=== PATIENT | female | born 1980 ===

== ENCOUNTER 2016-11-18 12:17 | Emergency (ER) | payer OTHER ==
[2016-11-18] MEDS ORDERED: Lactated Ringer's 1,000 ML IV SCH (12:45)
[2016-11-18 13:19] LABS: BASO % 0.4 % (0.0-2.0); EOS # 0.1 K/uL (0.0-0.7); EOS % 0.7 % (0.0-4.0); HEMOGLOBIN 11.9 g/dL (11.0-16.0); LYMPH # 2.7 K/uL (1.0-4.3); LYMPH % 20.9 % (20.0-40.0); MEAN CORPUSCULAR HEMOGLOBIN 26.1 pg (27.0-31.0); MEAN CORPUSCULAR HGB CONC 32.3 g/dL (33.0-37.0); MEAN PLATELET VOLUME 8.6 fL (7.2-11.7); MONO # 0.8 K/uL (0.0-0.8); MONO % 6.1 % (0.0-10.0); NEUT # 9.1 K/uL (1.8-7.0); NEUT % 71.9 % (50.0-75.0); NRBC % 0.1 % (0.0-2.0); RBC 4.57 Mil/uL (3.80-5.20); RED CELL DISTRIBUTION WIDTH 16.1 % (11.5-14.5); WHITE BLOOD COUNT 12.7 K/uL (4.8-10.8)
[2016-11-18 13:22] LABS: MEAN CELL VOLUME 80.9 fL (81.0-99.0)
[2016-11-18 13:32] LABS: SQUAMOUS EPITHIAL 3 /hpf (0-5); URINE BACTERIA MOD (<OCC); URINE BILIRUBIN NEGATIVE (NEGATIVE); URINE BLOOD NEGATIVE (NEGATIVE); URINE CLARITY Clear (Clear); URINE COLOR Straw (YELLOW); URINE GLUCOSE (UA) NORMAL (Normal); URINE LEUKOCYTE ESTERASE NEG Leu/uL (Negative); URINE NITRATE NEGATIVE (NEGATIVE); URINE PROTEIN NEGATIVE (NEGATIVE); URINE UROBILINOGEN NORMAL mg/dL (0.2-1.0)
[2016-11-18 13:35] LABS: INR 0.9; PROTHROMBIN TIME 10.3 SECONDS (9.7-12.2)
[2016-11-18 13:56] LABS: ALBUMIN 3.3 g/dL (3.5-5.0)
[2016-11-18 13:58] LABS: GFR AFRICAN-AMERICAN > 60; GFR NON-AFRICAN AMERICAN > 60
[2016-11-18 13:59] LABS: ALT/SGPT 23 U/L (9-52); AST/SGOT 17 U/L (14-36); BLOOD UREA NITROGEN 5 mg/dL (7-17); CALCIUM 9.6 mg/dl (8.6-10.4); URIC ACID 2.6 mg/dL (2.2-7.5)
[2016-11-18 14:00] LABS: ALB/GLOB RATIO 0.9 (1.0-2.1)
--- NOTE | 2016-11-18 14:28 | US ---
PROCEDURE: OB Pelvic Ultrasound HISTORY: elevated BP COMPARISON: None available. FINDINGS: UTERUS: Gestational sac: There is a single live intrauterine fetus in cephalic presentation. Heart rate: 161 bpm. BPD: 8.83 cm corresponding to 35 weeks and 5 days of gestational age. HC: 31.3 cm corresponding to 35 weeks and 1 day of gestational age. AC: 31.6 cm corresponding to 35 weeks and 4 days of gestational age. FL: 7.00 cm corresponding to 35 weeks and 6 days of gestational age. age (Ultrasound estimated): 35 weeks and 4 days Yana-gestational hemorrhage: None. Date of delivery (Ultrasound estimated) : 12/19/2016 Placenta is posterior. The amniotic fluid index is normal and measures 13.98 cm. Estimated weight is 2728 grams (28.8 percentile). The biophysical profile as documented by the technologist is as follows: breathin body movement: 2 Tone: 2 Amniotic Fluid: 2 Total score: 8 CERVIX: Long and closed. No cervical abnormality seen. The cervical length is 3.96 cm. FREE FLUID: None. OTHER FINDINGS: None. IMPRESSION: 1. Single live intrauterine fetus in cephalic presentation with mean gestational age of 35 weeks and 4 days. The estimated date of delivery by ultrasound is 12/19/2016. The ultrasound dates correspond with the clinical dates. 2. Biophysical profile score is 8. 3. Placenta is posterior, cervix is closed and amniotic fluid index is normal.
--- NOTE | 2016-11-18 14:38 | OBHP ---
Datetime: 11/18/2016 12:54 IP Adm Impression: , intrauterine IP Chief Complaint Other: elevated BP in office IP Admit Plan: Discharge home Admit Comment, IP Provider: chief complaint-elevated bp in office HPI 36 y/o at 36.4 wga here for evalaution of BP.Patient states that she was in clinic and wa s noted to have elevated BP.Patient denies nausea, vomiting, headache, chest pain, shortness of breat h, numbness or tingling in hands and feet course AMA; care with dr gustafson PMH denies PSH denies OBGYN HX Social hx denies tobacco,alcohol or illicit drug use Exam see exam section A/P 36 y/o at 36 weeks and 4 days with elevated BP in clinic.FHT nonreactive -PIH labs -iv fluid bolus -monitor closely 2.35 pm Patient denies any complaints FHT reactive after iv fluids BPP 8/8 PIH labs normal; UA with no protein.BP normal except for 1 elevated BP initially Patient discharged home follow up in2 days for nst and BP check discussed with dr gustafson Pelvic Type - PN: Adequate Extremities - PN: Normal Abdomen - PN: Normal Back - PN: Normal Lungs - PN: Normal Heart - PN: Normal General - PN: Normal Gestation - Est Wks by US: 36.4 IP Hx Assessment: The History has been Reviewed and is Current EGA AdmitDate IP: 36.4 Vital Signs Provider: Reviewed IP Chief Complaint: Other Genitourinary Exam: Normal DTRs - PN: Normal
== END 2016-11-18 14:37 | disposition home or self-care (01) ==
LOC: C.EROB 12:17
DX: O26.893 Other specified pregnancy related conditions, third trimester (principal); R03.0 Elevated blood-pressure reading, without diagnosis of hypertension; Z3A.36 36 weeks gestation of pregnancy
CPT/HCPCS: 76815; 76818; 80053; 81001; 83615; 84550; 85025; 85384; 85610; 85730; 86592; 86703; 86850; 86900; 99283; J7120

== ENCOUNTER 2016-11-22 19:05 | Inpatient (IN) | payer OTHER ==
[2016-11-22 19:13] VITALS: BMI 29.9
[2016-11-22] MEDS ORDERED: Lactated Ringer's 1,000 ML IV ONE (20:27)
[2016-11-22] MEDS ORDERED: Lactated Ringer's 1,000 ML IV SCH (20:30)
--- NOTE | 2016-11-22 21:17 | OBHP ---
Datetime: 11/22/2016 21:10 IP Adm Impression: Term, intrauterine IP Admit Plan: Admit to unit Admit Comment, IP Provider: 36 y/o at 37.1 wga with increasing blood pressure over past few wee ks up to 160/94. Pt was seen in office Thursday with elevated BP and advised to go to ER in which pre elcmpatic labs and prolonged montirong of BPS and nst was performed. Pt was subsequenlty discharged w ith close follow up. Pt also had recent 24 hour urine total protein with over 2000mg of protein. Pt currently denies headache, blurry vision, RUQ/epgiastric pain. course AMA; care with dr gustafson had hep b surface antigen abnormal repeat wnl (believe lab error) PMH denies PSH denies OBGYN HX Social hx denies tobacco,alcohol or illicit drug use Exam see exam section A/P 36 y/o at 37 weeks and 1 days with mild preeclampsia -admit to L+D -npo -PIH labs -iv fluid -cont toco and efm -analgesia prn -cervidil Pelvic Type - PN: Adequate Extremities - PN: Normal Abdomen - PN: Normal Back - PN: Normal Breast - PN: Not Done Lungs - PN: Normal Heart - PN: Normal Thyroid - PN: Normal Neurologic - PN: Normal HEENT - PN: Normal General - PN: Normal Weight - Estimated: 3200 Presentation-Admit: Vertex FHR - Baseline A Provider: 140 Contraction Comments Provider: irregular Gestation - Est Wks by US: 37.1 IP Hx Assessment: The History has been Reviewed and is Current EGA AdmitDate IP: 37.1 Vital Signs Provider: Reviewed; Within Normal Limits IP Chief Complaint: Other NICHD Variability Prov Fetus A: Moderate 6-25bpm NICHD Accel Fetus A IP Provider: 15X15 FHR Category Provider Fetus A: Category I NICHD Decel Fetus A IP Provider: None Dilatation, Provider: 0 Effacement, Provider: 0 Station, Provider: -3 Genitourinary Exam: Normal DTRs - PN: Normal
--- NOTE | 2016-11-22 21:20 | OBADHP ---
Datetime: 11/22/2016 21:10 Admit Comment, IP Provider: 36 y/o at 37.1 wga with increasing blood pressure over past few wee ks up to 160/94. Pt was seen in office Thursday with elevated BP and advised to go to ER in which pre elcmpatic labs and prolonged montirong of BPS and nst was performed. Pt was subsequenlty discharged w ith close follow up. Pt also had recent 24 hour urine total protein with over 2000mg of protein. Pt currently reports headache and denies blurry vision, RUQ/epgiastric pain. Pt reports pressure, lower back pain, constant, dneies ctx, vb, lof and reports movements. course AMA; care with dr gustafson had hep b surface antigen abnormal repeat wnl (believe lab error) PMH denies PSH denies OBGYN HX Social hx denies tobacco,alcohol or illicit drug use Exam see exam section A/P 36 y/o at 37 weeks and 1 days with preeclampsia -admit to L+D -vs q 15 min -npo -PIH labs -iv fluid -cont toco and efm -analgesia prn -cervidil Pelvic Type - PN: Adequate Extremities - PN: Normal Abdomen - PN: Normal Back - PN: Normal Breast - PN: Not Done Lungs - PN: Normal Heart - PN: Normal Thyroid - PN: Normal Neurologic - PN: Normal HEENT - PN: Normal General - PN: Normal Weight - Estimated: 3200 Presentation-Admit: Vertex FHR - Baseline A Provider: 140 Contraction Comments Provider: irregular Gestation - Est Wks by US: 37.1 IP Hx Assessment: The History has been Reviewed and is Current Vital Signs Provider: Reviewed; Within Normal Limits IP Chief Complaint: Other NICHD Variability Prov Fetus A: Moderate 6-25bpm NICHD Accel Fetus A IP Provider: 15X15 FHR Category Provider Fetus A: Category I NICHD Decel Fetus A IP Provider: None Dilatation, Provider: 0 Effacement, Provider: 0 Station, Provider: -3 Genitourinary Exam: Normal DTRs - PN: Normal EGA AdmitDate IP: 37.1 IP Adm Impression: Term, intrauterine IP Admit Plan: Admit to unit Datetime: 11/18/2016 12:54 IP Chief Complaint Other: elevated BP in office
[2016-11-22 21:27] LABS: BASO % 0.1 % (0.0-2.0); EOS # 0.1 K/uL (0.0-0.7); EOS % 0.8 % (0.0-4.0); HEMATOCRIT 36.3 % (34.0-47.0); LYMPH # 2.7 K/uL (1.0-4.3); LYMPH % 22.7 % (20.0-40.0); MEAN CELL VOLUME 80.3 fL (81.0-99.0); MEAN CORPUSCULAR HEMOGLOBIN 26.4 pg (27.0-31.0); MEAN CORPUSCULAR HGB CONC 32.9 g/dL (33.0-37.0); MEAN PLATELET VOLUME 8.3 fL (7.2-11.7); MONO # 0.9 K/uL (0.0-0.8); MONO % 7.4 % (0.0-10.0); RED CELL DISTRIBUTION WIDTH 15.8 % (11.5-14.5); WHITE BLOOD COUNT 11.8 K/uL (4.8-10.8)
[2016-11-22 21:31] LABS: RBC URINE < 1 /hpf (0-3); URINE BACTERIA OCC (<OCC); URINE BILIRUBIN NEGATIVE (NEGATIVE); URINE BLOOD NEGATIVE (NEGATIVE); URINE COLOR Straw (YELLOW); URINE GLUCOSE (UA) NORMAL (Normal); URINE KETONE NEGATIVE (NEGATIVE); URINE LEUKOCYTE ESTERASE NEG Leu/uL (Negative); URINE PROTEIN NEGATIVE (NEGATIVE); URINE UROBILINOGEN NORMAL mg/dL (0.2-1.0)
[2016-11-22 21:37] LABS: CHLORIDE 102 mmol/L (98-107); POTASSIUM 3.8 mmol/L (3.6-5.2); SODIUM 134 mmol/L (132-148)
[2016-11-22 21:39] LABS: AST/SGOT 16 U/L (14-36); BILIRUBIN,TOTAL 0.4 mg/dL (0.2-1.3); CARBON DIOXIDE 21 mmol/L (22-30); GFR AFRICAN-AMERICAN > 60; TOTAL PROTEIN 6.7 g/dL (6.3-8.3)
[2016-11-22 21:40] LABS: ALKALINE PHOSPHATASE 125 U/L (38-126); ALT/SGPT 21 U/L (9-52); BLOOD UREA NITROGEN 5 mg/dL (7-17); GLUCOSE,RANDOM 79 mg/dL (65-105); URIC ACID 3.1 mg/dL (2.2-7.5)
[2016-11-22] MEDS ORDERED: Nalbuphine 20 mg/ml Inj (1 ml) IVP PRN (23:30)
[2016-11-23 09:58] LABS: HEP B SURFACE AG CONF NEGATIVE
--- NOTE | 2016-11-23 11:28 | OBPN ---
Datetime: 11/23/2016 11:24 IP Progress Impression: Normal progression of labor IP Informed Consent Obtain: Induction of Labor IP Progress Plan: Continue present management Membranes, Provider: Intact Contraction Comments Provider: 3-6 min FHR - Baseline A Provider: 150 Presentation-Admit: Vertex IP Progress Note Comment: pt seen and examiend and reports cramping pain, tolerable. pt reports inte rmittent headache with blurry spots, denies any lof, vb, +FM. VSS VE see above a/p @ 37.2 wks GA IOL for preeclampsia -s/p cervidil -for cytotec -cont toco and efm -npo, ivf -cont current manamgnet Vital Signs Provider: Reviewed; Within Normal Limits NICHD Accel Fetus A IP Provider: 15X15 FHR Category Provider Fetus A: Category I NICHD Variability Prov Fetus A: Moderate 6-25bpm Dilatation, Provider: 0 Effacement, Provider: 0 Station, Provider: -3 NICHD Decel Fetus A IP Provider: None Datetime: 11/22/2016 21:10 Gestation - Est Wks by US: 37.1 Weight - Estimated: 3200
--- NOTE | 2016-11-23 14:18 | OBPN ---
Datetime: 11/23/2016 14:12 IP Informed Consent Obtain: Induction of Labor IP Progress Plan: Continue present management Membranes, Provider: Intact Contraction Comments Provider: q 5 min FHR - Baseline A Provider: 145 Gestation - Est Wks by US: 37.2 Presentation-Admit: Vertex IP Progress Note Comment: pt seen and examined denies any pain. pt denies heache, blurry vision, ruq /epigatric pain. VSS VE: se above a/p @ 37.2 wks GA IOL for mild preeclampsia -s/p cervidil x 1 -s/p cytotec -for second cervidil -cont toco and efm -pain management Vital Signs Provider: Reviewed; Within Normal Limits NICHD Accel Fetus A IP Provider: 15X15 NICHD Variability Prov Fetus A: Moderate 6-25bpm Dilatation, Provider: 0 Effacement, Provider: 0 Station, Provider: -3 NICHD Decel Fetus A IP Provider: None
[2016-11-24] MEDS ORDERED: Oxytocin 30 UNIT 30 UNITS/500 ML BAG IV SCH (03:00)
--- NOTE | 2016-11-24 04:50 | OBPN ---
Datetime: 11/24/2016 04:44 IP Progress Plan: Continue present management Membranes, Provider: Intact Contraction Comments Provider: irregular FHR - Baseline A Provider: 130 Gestation - Est Wks by US: 37.3 Presentation-Admit: Vertex IP Progress Note Comment: pt seen and examined and reports pain wiht contractions tolerable. denies lof, vb, +FM VSS VE see above MEDS s/p cervidl x 2 s/p cytotec x 1 A/P @ 37.3 wks GA IOL for mild preeclampsia, oligohydramnios -s/p cervidil x 2 -s/p cytotecx1 -for cytotec -cont toco and efm -pain managment FHR Category Provider Fetus A: Category I NICHD Variability Prov Fetus A: Moderate 6-25bpm Dilatation, Provider: 0 Effacement, Provider: 0 Station, Provider: -3 NICHD Decel Fetus A IP Provider: None
[2016-11-24] MEDS ORDERED: Sodium Citrate/Citric Acid 15 ml Sol PO ONE (07:34)
--- NOTE | 2016-11-24 07:49 | OBPN ---
Datetime: 11/24/2016 07:35 IP Progress Impression: Arrest of dilatation/descent Membranes, Provider: Intact Contraction Comments Provider: q 5 min FHR - Baseline A Provider: 135 IP Progress Note Comment: pt seen and examiend for progression of labor, IOL for mild preeclampsia, oligohydramnios reprots ctx pain, declined pain medicatin, deines lof, vb, +FM pt denies headache, blurry vision, ruq/epigastric pain VSS EMF: Cat I TOCO: q 5 min A/P @ 37.3 wks GA with failed IOL for mild preeclampsia and oligohydramnios -s/p cervidli x 2 -s/p cytotec x 2 -r/b/a/i of contining induction vs PLTCS discussed with patient not limited to bleeding to bleedin g , infection. pt and both agree to prceed to PLTCS , consnet signed. All questions answered Vital Signs Provider: Reviewed; Within Normal Limits NICHD Accel Fetus A IP Provider: 15X15 FHR Category Provider Fetus A: Category I NICHD Variability Prov Fetus A: Moderate 6-25bpm Dilatation, Provider: 0 Effacement, Provider: 10 Station, Provider: -3 NICHD Decel Fetus A IP Provider: None
[2016-11-24] MEDS ORDERED: cefOXitin IV 2 gm in Dextrose 2 GM/50 ML BAG IVPB ONE ×2 (07:50→08:03)
[2016-11-24] MEDS ORDERED: Sodium Citrate/Citric Acid 15 ml Sol ONE (07:50)
[2016-11-24] MEDS ORDERED: ceFAZolin IV 2 gm in Dextrose 2 GM/100 ML BAG IVPB ONE (08:00)
[2016-11-24] MEDS ORDERED: Morphine 1 mg/ml preservative-free Inj(Duramorph) ONE (08:04)
[2016-11-24] MEDS ORDERED: Oxycodone/Acetaminophen 5/325 mg Tab PO PRN ×2 (08:07)
--- NOTE | 2016-11-24 09:30 | OBDS ---
DELIVERY PERSONNEL Delivery Doctor: Jinny Guerra MD Scrub Nurse: Kip Mercer Script Editor: Marlen Vargas RN Anesthesiologist: Dr Estrada MATERNAL INFORMATION Delivery Anesthesia: Spinal Medications in Delivery: pitocin Placenta Cultured: Yes Provider Comments: live female apgars 9,9 weight of 6lbs 11 ounces. pediatricia present for melissa harding normal uterus tubes and ovaries bilaterlally ebl 800ml no complications LABOR SUMMARY EDC: 12/12/2016 00:00 No. Babies in Womb: 1 Labor Anesthesia: None LABOR INFORMATION Reason for Induction: Oligohydramnios; Other Cervical Ripening Agents: Cervidil; Cytotec @ Oxytocin: N/A Group B Beta Strep: Done, Result Unknown Antibiotics # of Doses: 1 Antibiotics Time of Last Dose: 0800 Steroids Given: None Reason Steroids Not Administered: Not Applicable MEMBRANES Membranes Rupture Method: Artificial Rupture of Membranes: 11/24/2016 08:44 Length of Rupture (hrs): 0.00 Amniotic Fluid Amount: Moderate Amniotic Fluid Odor: None STAGES OF LABOR Stage 3 hrs: -93735 Stage 3 min: -59 CSECTION DELIVERY Primary Indication: Failed Induction Other Primary Indication: OLigohydramnios Secondary Indication: Mild PreEclampsia CSection Urgency: N/A CSection Incidence: Primary CSection Incision: Lower Uterine Transverse BABY A INFORMATION Delivery Date/Time: 11/24/2016 08:44 Method of Delivery: Born in Route : No : N/A Forceps: N/A Vacuum Extraction: N/A Shoulder Dystocia : No SHOULDER DYSTOCIA BABY A Delivery Date/Time: 11/24/2016 08:44 PRESENTATION/POSITION BABY A Presentation: Cephalic Cephalic Presentation: Vertex Vertex Position: Left Occipital Posterior PLACENTA INFORMATION BABY A Placenta Delivery Time : 11/24/2005 08:45 Placenta Method of Delivery: Manual Removal Placenta Status: Delivered SCORES BABY A Heart Rate 1 min: >100 bpm Resp Effort 1 min: Good Cry Reflex Irritability 1 min: Cough or Sneeze or Pulls Away Muscle Tone 1 min: Active Motion Color 1 min: Body Lykens, Extremities Blue SCORE 1 MIN: 9 Heart Rate 5 min: >100 bpm Resp Effort 5 min: Good Cry Reflex Irritability 5 min: Cough or Sneeze or Pulls Away Muscle Tone 5 min: Active Motion Color 5 min: Body Lykens, Extremities Blue SCORE 5 MIN: 9 INFANT INFORMATION BABY A Gestational Age at Delivery: 37.3 Infant Outcome : Liveborn Condition : Stable Infant Sex: Female IDENTIFICATION/MEDS BABY A ID Band Number: [id number] ID Band Location: Left Leg; Left Arm Sensor Applied: Yes Sensor Number: [id number] Sensor Location : Cord Clamp WEIGHT/LENGTH BABY A Birthweight (gms): 3030 Weight (lb): 6 Infant Weight (oz): 11 Infant Length Inches: 18.50 Length cms: 47.0 CORD INFORMATION BABY A No. Cord Vessels: 3 Nuchal Cord : N/A Suction: None; Mouth ASSESSMENT BABY A Infant Complications Other: none
--- NOTE | 2016-11-24 09:32 | PCM.SURG1 ---
Surgeon's Initial Post Op Note - Surgeon's Notes Surgeon: Dee Guerra MD Processing Specialist: Husam Cox MD Type of Anesthesia: Spinal Anesthesia Administered By: Dr Musa Pre-Operative Diagnosis: Term intrauterine , failed inudctin of labor for mild preeclampsai and oligohydramnios Operative Findings: live female , JADE position, agpars 9,9 weight of 6lbs 11 ounces, ebl 800 ml, normal uterus tubes and ovaries bilaterally. fire extinguisher installer presnt for delivery. Dr Husam Cox was surgical assistance adn present for enire case and essential in ganing entry, retraction, exposure, holding bladder blade, delivery baby, closing all layers. Post-Operative Diagnosis: same as above Operation Performed: Primary Low transverse Cesearean section Specimen/Specimens Removed: placenta Estimated Blood Loss: EBL {In ML}: 800 Blood Products Given: N/A Drains Used: No Drains Date of Surgery/Procedure: 11/24/16 Time of Surgery/Procedure: 08:30
[2016-11-24] MEDS: Simethicone 80 mg Chewtab PO SCH ×3 (13:15→22:12)
[2016-11-24] MEDS: Prenatal Multivit/Folic Acid/Iron Tab PO SCH (15:05)
[2016-11-24] MEDS: cefOXitin IV 2 gm in Dextrose 2 GM/50 ML BAG IVPB SCH ×2 (16:11→23:43)
--- NOTE | 2016-11-25 00:47 | OP ---
PROCEDURE DATE: 11/24/2016 PREOPERATIVE DIAGNOSES: Term intrauterine , failed induction of labor, mild preeclampsia, and oligohydramnios. POSTOPERATIVE DIAGNOSES: Term intrauterine , failed induction of labor, mild preeclampsia, and oligohydramnios. OPERATION PERFORMED: Primary low transverse caesarean section. SURGEON: Dee Guerra MD REGULATORY AFFAIRS ANALYST: Husam Cox MD TYPE OF ANESTHESIA: Spinal. ANESTHESIA ADMINISTERED BY: *------*. OPERATIVE FINDINGS: Live female , JADE position, Agars 9 and 9, weight 6 pounds 11 ounces. Normal uterus, tubes, and ovaries bilaterally. Electronics Engineering Manager was present for delivery. Dr. Husam Cox was the surgical scrub technician present for the entire case and was essential for gaining entry, retraction and exposure, holding the bladder blade, delivering the baby, and closing all layers. ESTIMATED BLOOD LOSS: 800 mL. BLOOD PRODUCTS: None. COMPLICATIONS: None. SPECIMEN REMOVED: Placenta. DESCRIPTION OF PROCEDURE: The patient was taken to the operating room, where she was given spinal anesthesia. Once it was found to be adequate, she was placed on the operating table in the dorsal supine position. The patient was then prepped and draped in the usual sterile fashion and a time-out was done to confirm correct patient and correct procedure. A Pfannenstiel skin was made with a scalpel and carried down to the underlying fascia with the Bovie. The fascia was incised in the midline and incision was extended laterally with the Bovie. The inferior aspect of the fascial incision was grasped with Allis and Manuel clamps and underlying rectus muscle dissected off bluntly with the use of the Bovie. Attention was then turned to the superior aspect of the incision, which in a similar fashion was grasped with Allis and Manuel clamps and underlying rectus muscle dissected off bluntly with the use of the Bovie. The rectus muscle was then bluntly in the midline. The peritoneum identified in a clear space, entered bluntly, and *------* until there was good visualization of the bladder. The lower end of the Tanya was then inserted and the vesicouterine peritoneum was incised with the Metzenbaum scissors. The incision was extended laterally and bladder flap was created digitally. The lower end of the Tanya was then reinserted and lower uterine segment incised in a transverse fashion. The uterine incision was extended laterally bluntly with clear amniotic fluid noted in small amount. The surgeon's hand entered the uterine cavity. The 's head was delivered atraumatically, with no nuchal cord noted, followed by delivery of the shoulders and followed by delivery of body. Both oral and nasal passages of the baby were bulb suctioned. The umbilical cord was clamped and cut and the baby was handed off to the waiting back stayer. The cord blood and cord gases were collected and sent x2. The placenta was then delivered manually. The uterus was exteriorized and cleared off all clots and debris, and the uterine incision was then repaired in 0 Vicryl in a running continuous locked fashion. A second layer of the same suture was used to close the uterus in a running imbricating manner. There was good hemostasis at the uterine incision site. There was normal tubes and ovaries. The uterus was then returned into the abdomen and pericolic gutters were cleared off all clots and debris. There was good hemostasis. The peritoneum was reapproximated and closed with 2-0 chromic in a continuous fashion. The rectus was reapproximated with 2-0 chromic in an interrupted manner. The fascia was reapproximated and closed with 0 Vicryl in a running continuous fashion. Subcutaneous layer was closed with 2-0 plain in an interrupted manner and the skin was reapproximated and closed with 4-0 Monocryl in a running subcuticular fashion. At the end of the procedure, all needles, sponge, and instrument counts were noted as correct x2. The patient tolerated the procedure well and was transferred to the recovery room in stable condition. Dee Guerra MD
[2016-11-25] MEDS: cefOXitin IV 2 gm in Dextrose 2 GM/50 ML BAG IVPB SCH (08:10)
[2016-11-25 08:36] LABS: BASO % 0.1 % (0.0-2.0); EOS # 0.1 K/uL (0.0-0.7); EOS % 0.4 % (0.0-4.0); HEMATOCRIT 34.2 % (34.0-47.0); LYMPH # 2.2 K/uL (1.0-4.3); LYMPH % 13.6 % (20.0-40.0); MEAN CELL VOLUME 80.1 fL (81.0-99.0); MEAN CORPUSCULAR HEMOGLOBIN 26.6 pg (27.0-31.0); MEAN CORPUSCULAR HGB CONC 33.2 g/dL (33.0-37.0); MEAN PLATELET VOLUME 8.7 fL (7.2-11.7); MONO # 1.2 K/uL (0.0-0.8); MONO % 7.4 % (0.0-10.0); WHITE BLOOD COUNT 16.4 K/uL (4.8-10.8)
[2016-11-25] MEDS: Simethicone 80 mg Chewtab PO SCH ×4 (09:43→21:41)
[2016-11-25] MEDS: Prenatal Multivit/Folic Acid/Iron Tab PO SCH (09:56)
--- NOTE | 2016-11-25 13:21 | OBPPN ---
Datetime: 11/25/2016 07:06 PP Pain Prov: Within normal limits PP Nausea Prov: Denies PP Flatus Prov: No PP BM Prov: No PP Nausea Prov comment: Lochia is moderate PP Flatus Prov comment: OOB to chair PP Breasts Prov: Normal PP Heart Prov: Normal PP Lungs Prov: Normal PP Abdomen/Uterus Prov: Normal PP Lochia Prov: Normal PP Vulva/Perineum Prov: Normal PP CVA Tenderness Prov: Not Done PP Extremities Prov: Normal PP C/S Incision Prov: Normal PP Progress Prov: Normal PP Impression Prov: Normal progression PP Plan Prov: Continue present management PP Progress Note Prov: Patient seen and examined at bedside. Patient is doing well, out of bed to ch air. Pain is controlled. Patient is tolerating diet. Lochia is moderate. Padilla out this am. Denies pa ssing flatus or BM. Breast feeding. Denies headache, dizziness, visual changes, N/V, CP, SOB, urinary symptoms. VS: 116/66 91 99.0 I/O: 4000/3250 Gen: AAOx3 CV: RRR Lungs: CTA B/L Abd: Soft, appropriately tender, dressing c/d/i, fundus firm at umbilicus, abd binder in place Ext: No clubbing, cyanosis, edema; no calf tenderness, +pedal pulses, - homans Labs: 11.8>11.9/36.3<190 F/U am CBC Rh positive A/P: 36 yo at 37w3d s/p PLTCD 2/2 failed induction for pre-eclampsia and low SCOTT POD#1 1. Stable, afebrile 2. Pain control - percocet and motrin prn 3. F/U am CBC 4. Advance diet as tolerated 5. Padilla discontinued; f/u voiding trial 6. Encourage ambulation and hydration; encourage ISS use 7. Rubella non-immune - will need MMR prior to discharge 8. Continue abx 9. Continue routine care 10. Plan d/w attending Mercedes Lomax PGY-1 agree with above s/p CxS POD #1 doign well pain amnage santamaria albs bowel regimen regular diet encourage ambaution, bresta feeding IP PP Procedures: None Vital Signs Provider PP: Reviewed
[2016-11-26 07:51] LABS: BASO % 0.2 % (0.0-2.0); EOS # 0.1 K/uL (0.0-0.7); EOS % 1.1 % (0.0-4.0); HEMATOCRIT 30.7 % (34.0-47.0); LYMPH # 2.1 K/uL (1.0-4.3); LYMPH % 15.5 % (20.0-40.0); MEAN CELL VOLUME 80.8 fL (81.0-99.0); MEAN CORPUSCULAR HEMOGLOBIN 26.8 pg (27.0-31.0); MEAN CORPUSCULAR HGB CONC 33.2 g/dL (33.0-37.0); MEAN PLATELET VOLUME 8.2 fL (7.2-11.7); MONO % 7.3 % (0.0-10.0); RED CELL DISTRIBUTION WIDTH 15.7 % (11.5-14.5); WHITE BLOOD COUNT 13.5 K/uL (4.8-10.8)
[2016-11-26] MEDS: Simethicone 80 mg Chewtab PO SCH ×3 (11:14→21:49)
[2016-11-26] MEDS: Prenatal Multivit/Folic Acid/Iron Tab PO SCH (11:49)
[2016-11-26 16:16] VITALS: RESP 20; O2SAT 98
[2016-11-27 00:14] VITALS: BP 120/72; PULSE 79; TEMP 98
[2016-11-27] MEDS ORDERED: Bacitracin 500 Units/gm Oint Foilpak UD TOP ONE (07:13)
[2016-11-27] MEDS ORDERED: Measles, Mumps, and Rubella 0.5 ML VIAL SC ONE (07:13)
--- NOTE | 2016-11-27 07:27 | OBPPN ---
Datetime: 11/27/2016 07:25 PP Pain Prov: Within normal limits PP Nausea Prov: Denies PP Flatus Prov: Yes PP BM Prov: Yes PP Breasts Prov: Normal PP Heart Prov: Normal PP Lungs Prov: Normal PP Abdomen/Uterus Prov: Normal PP Lochia Prov: Normal PP Vulva/Perineum Prov: Normal PP CVA Tenderness Prov: Normal PP Extremities Prov: Normal PP C/S Incision Prov: Normal PP Progress Prov: Normal PP Impression Prov: Normal progression PP Plan Prov: Discharge IP PP Procedures: None Vital Signs Provider PP: Reviewed; Within Normal Limits Datetime: 11/26/2016 06:52 PP Comments Phys Exam Prov: fudus below umblicus ext no edema,no calf ten incision clean and dry PP Progress Note Prov: Patient seen and examined at bedside. Patient is doing well, pain is controll ed. Per nursing no acute events overnight. Patient is ambulating and tolerating diet. Lochia is moder ate and decreasing. Passing flatus and had BM x2. Urinating without difficulty. . VS: BP 111/71 HR 84 Temp 97.4 Gen: AAOx3, NAD CV: RRR Lungs: CTA B/L; ISS at bedside Abd: Soft, appropriately tender, fundus firm at umbilicus, incision c/d/i with suture, abd binder in place Ext: No clubbing, cyanosis, edema; No calf tenderness Labs: 11.8>11.9/36.3<190 16.4>11.4/34.2<164 Rh positive Rubella non-immune A/P: 36 yo at 37w3d s/p PLTCD 2/2 failed induction for pre-eclampsia POD#2 1. Stable, afebrile 2. Pain control - Motrin and percocet prn 3. Encourage ambulation and hydration; encourage ISS use 4. Rubella non-immune - MMR prior to discharge 5. Continue routine care 6. Anticipate discharge tomorrow - pelvic rest x 6 weeks, f/u with office in 1 week for incision c heck, percocet/motrin prn pain 7. Plan discussed with attending Mercedes Lomax PGY-1 agree with above
--- NOTE | 2016-11-27 07:29 | OBPPN ---
Datetime: 11/27/2016 07:25 PP Progress Note Prov: Patient seen and examined at bedside. Patient is doing well, pain is controll ed. Per nursing no acute events overnight. Patient is ambulating and tolerating diet. Lochia is moder ate and decreasing. Passing flatus and had BM x2. Urinating without difficulty. . VSS Gen: AAOx3, NAD BREASAT: non engorged b/l CV: RRR Lungs: CTA B/L; ISS at bedside Abd: Soft, appropriately tender, fundus firm below level of um umbilicus, incision c/d/i minmal lohia, non culs smelling Ext: No clubbing, cyanosis, edema; No calf tenderness Labs: 11.8>11.9/36.3<190 16.4>11.4/34.2<164 Rh positive Rubella non-immune A/P: 36 yo s/p PLTCD POD#3, stable for discharge d/c home rto 1 week precautiosn given
--- NOTE | 2016-11-27 07:29 | OBDCSUM ---
Datetime: 11/27/2016 07:27 Discharged to, Provider: Home Follow up at, Provider: DR Guerra Disch Instr Activity: Normal activity Disch Instr Diet: Regular Discharge Instructions, Provider: Routine instructions given Discharge Diagnosis, Provider: Term Delivered Discharge Time: 11/27/2016 10:00 Follow up in weeks, Provider: 10 days Disch Referrals: None Contraception discussed, Prov: Yes Disch Activity Restrictions: No sexual activity; Nothing in vagina - [place], tampons, douche Discharge Comment, Provider: precautsion given Contraception after Delivery: Not Planning to Use
[2016-11-27] MEDS: Prenatal Multivit/Folic Acid/Iron Tab PO SCH (09:30)
[2016-11-27] MEDS: Simethicone 80 mg Chewtab PO SCH ×2 (09:30→13:04)
== END 2016-11-27 14:45 | disposition home or self-care (01) | DRG 765 ==
LOC: C.EROB 19:05 → C.4D 20:08 → C.4M 11-24 11:56
PROVIDERS: ADMIT Obstetrics & Gynecology; ATTEND Obstetrics & Gynecology
PROC: 3E0P7GC Introduction of Other Therapeutic Substance into Female Reproductive, Via Natural or Artificial Opening (ICD-10-PCS; 2016-11-23)
PROC: 10D00Z1 Extraction of Products of Conception, Low, Open Approach (ICD-10-PCS; principal; 2016-11-24)
DX: O14.04 Mild to moderate pre-eclampsia, complicating childbirth (principal); O41.03X0 Oligohydramnios, third trimester, not applicable or unspecified; O61.9 Failed induction of labor, unspecified; O09.513 Supervision of elderly primigravida, third trimester; Z3A.37 37 weeks gestation of pregnancy; Z37.0 Single live birth